=== PATIENT | male | born 1995 | race Caucasian/White ===

== ENCOUNTER 2018-11-22 16:38 | Emergency (ER) | payer SELFPAY ==
--- NOTE | 2018-11-22 18:32 | EDM.PDOC ---
ED HPI GENERAL MEDICAL PROBLEM - General Chief Complaint: Upper Extremity Injury/Pain Stated Complaint: RIGHT THUMB LACERATION Time Seen by Provider: 11/22/18 17:20 Source of Information: Reports: Patient History Limitations: Reports: No Limitations - History of Present Illness INITIAL COMMENTS - FREE TEXT/NARRATIVE: 23 year old male presents for evaluation and treatment of an injury to the right thumb. Patient was putting in fence posts and crushed his thumb between the post and the post pounder. Reports pain and swelling to the right thumb. Subungual hematoma present which the patient used a drill to release the pressure prior to arrival in the ER. Patient is right handed. Patient reports tetanus is up to date. Left Finger-Thumb Pain Score (Numeric/FACES): 8 - Related Data Allergies Allergy/AdvReac Type Severity Reaction Status Date / Time No Known Allergies Allergy Verified 11/22/18 17:04 Home Meds: Home Meds Acetaminophen/HYDROcodone [[place] 325-5 MG] 1 tab PO Q4H PRN #20 tablet 11/22/18 [Rx] Cetirizine HCl [Zyrtec] 10 mg PO DAILY PRN 11/22/18 [History] Review of Systems - Review of Systems Review Of Systems: See Below Musculoskeletal: Reports: Hand Pain (right hand thumb) Skin: Reports: Change in Hair/Nails (subungual hematoma) Neurological: Denies: Numbness, Tingling ED EXAM, GENERAL - Physical Exam Exam: See Below Exam Limited By: No Limitations General Appearance: Alert, WD/WN, No Apparent Distress Nose: Normal Inspection Throat/Mouth: Normal Inspection, No Airway Compromise Cardiovascular: Normal Peripheral Pulses, Regular Rate, Rhythm Peripheral Pulses: 2+: Radial (R) Extremities: Limited Range of Motion (ROM testing deferred due to swelling and pain), Other (nail is still in place but has a 80% subungual hematoma with the proximal portion detached; swelling chandler te distal phalnex, tenderness to the phalnex) Neurological: Alert, Normal Cognition Psychiatric: Normal Affect, Normal Mood Skin Exam: Warm, Dry, Normal Color ED TRAUMA EXTREMITY PROCEDURES - Splinting Right Thumb Splint Site: right htumb Pre-Procedure NV Status: Normal Post-Procedure NV Status: Normal Splint Material: Aluminum-Foam Splint Design: Volar Applied & Form Fitted By: Nurse Provider Post-Splint Application NV Check: NV Status Normal, Good Position Complications: No Course - Vital Signs Last Recorded V/S: Last Vital Signs Temp 96.2 F 11/22/18 16:59 Pulse 75 11/22/18 16:59 Resp 19 11/22/18 16:59 BP 146/79 H 11/22/18 16:59 Pulse Ox 100 11/22/18 16:59 - Radiology Interpretation Free Text/Narrative:: xray of the right thumb shows a comminuted fracture of the distal phalanx with minimal displacement. Formal read pending. - Re-Assessments/Exams Free Text/Narrative Re-Assessment/Exam: 11/22/18 18:29 xray results reviewed with the patient. Will leave nail on, will likely fall off later. Nursing staff applied finger splint. Recommend follow-up with ortho Tetanus is up to date. Discharge instructions as documented. Departure - Departure Time of Disposition: 18:32 Disposition: Home, Self-Care 01 Condition: Fair Clinical Impression: Fracture of distal phalanx of right thumb, Subungual hematoma - Discharge Information *PRESCRIPTION DRUG MONITORING PROGRAM REVIEWED*: No *COPY OF PRESCRIPTION DRUG MONITORING REPORT IN PATIENT BRETT: No Prescriptions: Acetaminophen/HYDROcodone [[place] 325-5 MG] 1 tab PO Q4H PRN #20 tablet PRN Reason: Pain Instructions: Finger Fracture, Adult Referrals: PCP,None [Primary Care Provider] - Sachin Jackson MD [Physician] - Forms: ED Department Discharge Additional Instructions: Wear the splint at all times. Follow-up with ortho this week or next week. Recommend Dr. Jackson , call to schedule with him. Please let him know you have a fracture of the distal phalanx of your right thumb. OTC Ibuprofen as needed for pain. For pain not with ibuprofen take [place] one tablet for 6 hours. [place] is habit-forming, take as few f these as needed to control your pain. Do not drive or operate machinery within 10 hours taking [place]. Spent on at all time Ice, even over the splint and elevate to help reduce the swelling. Please return to ER for symptoms change or worsen.s.
--- NOTE | 2018-11-23 06:22 | CR ---
Right thumb: Four views of the right thumb were obtained. Mildly comminuted fracture within the distal phalanx of the thumb is seen. Mild displacement is seen measuring up to 2.6 mm. Soft tissue swelling is noted. No proximal bony abnormality is seen. Impression: 1. Comminuted fracture within the distal phalanx of the right thumb with mild displacement. 2. Soft tissue swelling. Diagnostic code #3
== END 2018-11-22 19:04 | disposition home or self-care (01) ==
LOC: JD.ED 16:38
DX: S62.521A Displaced fracture of distal phalanx of right thumb, initial encounter for closed fracture (principal); Z79.899 Other long term (current) drug therapy; W23.1XXA Caught, crushed, jammed, or pinched between stationary objects, initial encounter
CPT/HCPCS: 29130; 73140-26-F5; 73140-F5; 99283; 99283-25